=== PATIENT | male | born 1995 | race African-American/Black ===

== ENCOUNTER → 2017-11-25 | Outpatient (REF) | payer MEDICAID, OTHER | LOC: M LAB REF 21:49 | DX: Z11.59 Encounter for screening for other viral diseases (principal) ==

== ENCOUNTER → 2018-03-05 | Outpatient (CLI) | payer OTHER | LOC: M WUC 08:51 | DX: M25.561 Pain in right knee (principal); M25.562 Pain in left knee | CPT/HCPCS: 73560 ==

== ENCOUNTER 2018-08-01 09:08 | Emergency (ER) | payer OTHER ==
[~2018-08-01] VITALS: Ht 180.3 cm; Wt 97.7 kg
[2018-08-01] MEDS ORDERED: AZEL1SPR3 (09:17)
--- NOTE | 2018-08-01 10:14 | REP ---
LEFT ANKLE, FOUR VIEWS: HISTORY: Fall. There is no acute fracture or dislocation. The joint space is normal in appearance. IMPRESSION: There is no acute fracture or dislocation. Electronically Signed by Harshad Colbert MD 08/01/2018 10:17 A
[2018-08-01] MEDS ORDERED: IBUP-1022 PO (11:34)
[2018-08-01 12:00] VITALS: BP 127/71
== END 2018-08-01 12:03 | disposition home or self-care (01) ==
LOC: M ED 09:08
DX: S93.402A Sprain of unspecified ligament of left ankle, initial encounter (principal); W00.0XXA Fall on same level due to ice and snow, initial encounter; Y92.9 Unspecified place or not applicable; Y93.9 Activity, unspecified; Y99.9 Unspecified external cause status; Z91.010 Allergy to peanuts

== ENCOUNTER 2023-02-14 08:21 | Emergency (ER) | payer OTHER ==
[~2023-02-14] VITALS: Ht 180.3 cm; Wt 93.5 kg
[~2023-02-14 08:21] MED LIST: AZEL1SPR3; IBUP-1022 PO
[2023-02-14 11:40] LABS: BASO # 0.1 10^3/uL (0.0-0.2); BASO % 0.5 % (0.0-1.0); EOS # 0.3 10^3/uL (0.0-0.5); EOS % 2.7 % (0.0-3.0); HEMATOCRIT 46.7 % (42.0-52.0); HEMOGLOBIN 15.3 g/dl (13.5-17.5); LYMPH # 2.9 10^3/uL (1.5-5.0); LYMPH % 30.6 % (24.0-44.0); MEAN CORPUSCULAR HEMOGLOBIN 30.8 pg (27.0-33.0); MEAN CORPUSCULAR HGB CONC 32.8 g/dl (32.0-36.5); MONO # 0.7 10^3/uL (0.0-0.8); MONO % 7.3 % (2.0-8.0); NEUTROPHILS # 5.6 10^3/uL (1.5-8.5); NEUTROPHILS % 58.5 % (36.0-66.0); PLATELET COUNT, AUTOMATED 257 10^3/uL (150-450); RED BLOOD COUNT 4.97 10^6/uL (4.30-6.10); WHITE BLOOD COUNT 9.5 10^3/uL (4.0-10.0)
[2023-02-14 11:49] VITALS: BP 114/66; TEMP 98; O2SAT 100
[2023-02-14 11:59] LABS: ALBUMIN 3.9 G/DL (3.2-5.2); ALKALINE PHOSPHATASE 63 U/L (46-116); ALT/SGPT 29 U/L (7.0-40); AST/SGOT 19 U/L (<34); BILIRUBIN,TOTAL 0.5 MG/DL (0.3-1.2); BLOOD UREA NITROGEN 6 MG/DL (9-23); CALCIUM LEVEL 9.3 MG/DL (8.5-10.1); CARBON DIOXIDE LEVEL 26 MMOL/L (20-31); CHLORIDE LEVEL 103 MMOL/L (98-107); CREATININE FOR GFR 0.99 MG/DL (0.70-1.30); GLOMERULAR FILTRATION RATE > 60.0 (>60); GLUCOSE, FASTING 88 MG/DL (60-100); POTASSIUM SERUM 3.6 MMOL/L (3.5-5.1); SODIUM LEVEL 138 MMOL/L (136-145); TOTAL PROTEIN 7.1 G/DL (5.7-8.2)
[2023-02-14 12:06] LABS: HEPATITIS B SURFACE ANTIBODY POSITIVE (POSITIVE)
[2023-02-14 12:31] LABS: HIV 1&2 SCREEN NEGATIVE (NEGATIVE)
[2023-02-14 12:39] LABS: HEPATITIS C VIRUS ABY INDEX 0.13 INDEX (<0.8)
== END 2023-02-14 11:50 | disposition home or self-care (01) ==
LOC: M ED 08:21
DX: Z77.21 Contact with and (suspected) exposure to potentially hazardous body fluids (principal); F17.200 Nicotine dependence, unspecified, uncomplicated; F10.10 Alcohol abuse, uncomplicated; Y99.0 Civilian activity done for income or pay; Z91.010 Allergy to peanuts; Z79.899 Other long term (current) drug therapy

== ENCOUNTER 2023-05-14 16:33 | Emergency (ER) | payer OTHER ==
[~2023-05-14] VITALS: Ht 180.3 cm; Wt 93.5 kg
[2023-05-14 20:39] VITALS: BP 130/75; TEMP 98.3; O2SAT 99
== END 2023-05-14 20:41 | disposition home or self-care (01) ==
LOC: M ED 16:33
DX: S63.91XA Sprain of unspecified part of right wrist and hand, initial encounter (principal); S60.221A Contusion of right hand, initial encounter; Z91.010 Allergy to peanuts; Z79.1 Long term (current) use of non-steroidal anti-inflammatories (NSAID)